=== PATIENT | female | born 1970 | race African-American/Black ===

== ENCOUNTER 2021-04-10 04:16 | Emergency (ER) | payer OTHER, BC ==
--- NOTE | 2021-04-10 05:57 | ED Physician Documentation ---
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 Patient states that been shorthanded over the last couple of months though she has had to get on the floor with her employees and she realizes that the exposure to vapors is very strong throughout the entire shift. Patient states that she has been noticing that if she is in the midst of the vapors too long, she begins to sweat and get a hot cold feeling in her arms and tingling in her fingers. Patient states that sometimes she feels lightheaded. The symptoms generally improve when she gets out of the room, but she is frustrated because she is asked her company many times to provide re spirators and they have not. Patient states she is a smoker, but usually does not have symptoms like this. She does note that she was thrown from a buffer about 10 days ago and has been having pain in the left knee since. No distinct tissue injury otherwise. Patient did not hear a "pop" or "snap". No other complaints at this time. Review of Systems Ten Systems: 10 systems reviewed and negative Constitutional: reports: Reviewed and negative Eyes: reports: Reviewed and negative Ears: reports: Reviewed and negative Nose: reports: Reviewed and negative Throat: reports: Reviewed and negative Cardiac: reports: Reviewed and negative Respiratory: reports: Dyspnea, Cough, Wheezing GI: reports: Reviewed and negative : reports: Reviewed and negative Skin: reports: Reviewed and negative Musculoskeletal: reports: Joint pain (Left knee) Neurologic: reports: Reviewed and negative Psychiatric: reports: Reviewed and negative Endocrine: reports: Reviewed and negative Immunocompromised: reports: Reviewed and negative PD PAST MEDICAL HISTORY - Past Medical History Past Medical History: Yes Neuro: Migraines Endocrine/Autoimmune: Type 2 diabetes : Kidney stones HEENT: Other Other Past Medical History: TMJ; hip fx - Past Surgical History 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 - Social History Does the pt smoke?: Yes Smoking Status: Current every day smoker Does the pt drink ETOH?: No Does the pt have substance abuse?: No - Immunizations Immunizations are current?: Yes PD ED PE NORMAL - Vitals Vital signs reviewed: Yes - General General: Alert and oriented X 3, No acute distress, Well developed/nourished - HEENT HEENT: Atraumatic, PERRL, EOMI, Moist mucous membranes - Neck Neck: Supple, no meningeal sign - Cardiac Cardiac: RRR, No murmur, Strong equal pulses - Respiratory Respiratory: No respiratory distress, Clear bilaterally - Abdomen Abdomen: Soft, Non tender, Non distended - Derm Derm: Normal color, Warm and dry, No rash - Extremities Extremities: No deformity, Other (No point tenderness of left knee, but when patient flexes and weights the left lower extremity, she experiences the deep pain and sense of instability.) - Neuro Neuro: Alert and oriented X 3 - Psych Psych: Normal mood, Normal affect Results - Vitals Vitals: Vital Signs - 24 hr 04/10/21 04/10/21 04/10/21 04:38 05:14 06:22 Temperature 36.5 C 36.5 C 36.5 C Heart Rate 93 91 88 Respiratory 98 H 19 18 Rate Blood Pressure 128/92 H 128/91 H 151/96 H O2 Saturation 98 97 04/10/21 06:25 Temperature 36.4 C L Heart Rate 86 Respiratory 18 Rate Blood Pressure 151/96 H O2 Saturation 97 Oxygen O2 Source Room air - Rads (name of study) cxr Radiology: Final report received, EMP read indepedently, See rad report (neg) L knee XR Radiology: Final report received, EMP read indepedently (nad) PD MEDICAL DECISION MAKING - ED course Complexity details: reviewed results, re-evaluated patient, considered differential, d/w patient ED course: We have discussed the need for the patient to stay away from the chemicals when they are really bothering her. We have also discussed important would be for the company to provide a respirator that is designed to filter Vapors. Departure - Departure Disposition: 01 Home, Self Care Clinical Impression: Toxic effect of unspecified gases, fumes and vapors, accidental (unintentional), initial encounter Left knee sprain Qualifiers: Encounter type: initial encounter Involved ligament of knee: unspecified ligament Qualified Code(s): S83.92XA - Sprain of unspecified site of left knee, initial encounter Condition: Stable Instructions: ED Inhalation Chemical, ED Sprain Knee Comments: Your chest x-ray looks good. Your knee x-ray shows a little bit of roughness of the outside of the kneecap, but the joint itself looks good. You have most likely at least partially torn one of your cruciate ligaments, causing the sense of instability with flexion. It is important that you follow-up with your doctor to discuss getting an MRI done to get a better look at this joint. You may wear the articulating knee brace as needed to help with support. Discharge Date/Time: 04/10/21 06:26
[2021-04-10 06:24] VITALS: BP 151/96
--- NOTE | 2021-04-10 09:30 | XRAY Report ---
PROCEDURE: Chest 1 View X-Ray INDICATIONS: cough, chemical exposure TECHNIQUE: One view of the chest was acquired. COMPARISON: None FINDINGS: Surgical changes and devices: None. Lungs and pleura: No pleural effusions or pneumothorax. Mild bilateral perihilar bronchial wall thic kening. Lungs are otherwise clear. Mediastinum: Mediastinal contours appear normal. Heart size is normal. Bones and chest wall: No suspicious bony lesions. Overlying soft tissues appear unremarkable. IMPRESSION: 1. Findings suggestive of mild bronchitis or reactive airways disease. 2. No pneumonia or pulmonary edema. Reviewed by: Adelaide Gtz MD on 04/10/2021 9:29 AM PDT Approved by: Adelaide Gtz MD on 04/10/2021 9:29 AM PDT Station ID: [id number]
--- NOTE | 2021-04-10 09:31 | XRAY Report ---
PROCEDURE: Knee 3 View LT INDICATIONS: pain/injury TECHNIQUE: 3 views of the left knee(s) were acquired. COMPARISON: None. FINDINGS: Bones: No fractures or dislocations. No suspicious bony lesions. Soft tissues: No joint effusion. No suspicious soft tissue calcifications. IMPRESSION: Intact left knee. Reviewed by: Adelaide Gtz MD on 04/10/2021 9:29 AM PDT Approved by: Adelaide Gtz MD on 04/10/2021 9:29 AM PDT Station ID: [id number]
== END 2021-04-10 06:26 | disposition home or self-care (01) ==
LOC: ED 04:16
DX: S83.92XA Sprain of unspecified site of left knee, initial encounter (principal); T59.91XA Toxic effect of unspecified gases, fumes and vapors, accidental (unintentional), initial encounter; X58.XXXA Exposure to other specified factors, initial encounter; Y93.H9 Activity, other involving exterior property and land maintenance, building and construction; Y99.0 Civilian activity done for income or pay; E11.9 Type 2 diabetes mellitus without complications; F17.200 Nicotine dependence, unspecified, uncomplicated
CPT/HCPCS: 99282; 99283

== ENCOUNTER 2021-04-25 23:05 | Emergency (ER) | payer OTHER, BC ==
[2021-04-25 23:47] VITALS: BP 155/99
--- NOTE | 2021-04-26 00:30 | ED Physician Documentation ---
History of Present Illness - Stated complaint Stated Complaint: L KNEE PX - Chief complaint Chief Complaint: Ext Problem - History obtained from History obtained from: Patient - History of Present Illness Timing: Other (02/12 (over 2 months ago)) Pain level max: 4 (movement) Pain level now: 2 (rest) Improved by: rest, using brace Worsened by: movement, weight-bearing - Additonal information Additional information: patient says she sustained an injury at work on 02/12/21 when she was thrown by a buffing machine (per patient), causing sudden onset left knee pain. She was not evaluated at that time. Since then, she has had ongoing problems with her left knee, feels as though the left knee is unstable and that if she puts a normal amount of weight on it without the brace, the knee will give out. She says she had a second injury, again involving a buffer at work, on 04/04/21. She waited several days to see if the symptoms would improve but eventually came to ED 04/10/21 for evaluation of the left knee injury. She had xrays of the knee which were negative for acute/emergent findings. It was on this visit that she was provided a knee immobilizer. She returns asking for another work note and to discuss options for pain control. She says she has been in contact with [facility] but that they cannot proceed until they receive the [facility] report from the previous [facility] ED visit. Review of Systems Cardiac: reports: Reviewed and negative Respiratory: reports: Reviewed and negative Skin: denies: Rash Musculoskeletal: reports: Joint pain (left knee; only with weight-bearing and associated with sensation of instability), Pain with weight bearing. 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 - Present Medications Home Medications: Ambulatory Orders Medication Instructions Recorded Confirmed traMADol [Ultram] 50 - 100 mg PO Q6H PRN #20 tablet 04/26/21 - Allergies Allergies/Adverse Reactions: Allergies Allergy/AdvReac Type Severity Reaction Status Date / Time No Known Drug Allergies Allergy Verified 04/25/21 23:16 - Social History Does the pt smoke?: Yes Smoking Status: Current every day smoker Does the pt drink ETOH?: No Does the pt have substance abuse?: No - Immunizations Immunizations are current?: Yes PD ED PE NORMAL - Vitals Vital signs reviewed: Yes - General General: Alert and oriented X 3, No acute distress, Well developed/nourished - Derm Derm: Normal color, Warm and dry - Extremities Extremities: No deformity, No tenderness to palpate, No edema, No calf tenderness / cord, Other (discomfort with attempt to test stability of left knee (such as anterior drawer). negative homans ) Results - Vitals Vitals: Oxygen O2 Source Room air PD MEDICAL DECISION MAKING - ED course Complexity details: reviewed old records, considered differential, d/w patient ED course: testing (repeat or new) is not indicated at this time on emergent basis. She needs outpatient reevaluation for consideration of further testing/treatment (such as MRI, PT, if appropriate at discretion of examining medical practitioner). Regarding analgesics, she does not want narcotics, but has not had adequate relief with OTC. We discussed tramadol and she will try this option, understanding that it is considered an opioid though generally much milder in both effect and side effect compared to vicodin or percocet. She is instructed to not drive or operate heavy machinery for minimum 6 hours after a dose.She will continue to pursue f/u through [facility] Departure - Departure Disposition: 01 Home, Self Care Clinical Impression: Left knee sprain Qualifiers: Encounter type: initial encounter Involved ligament of knee: unspecified ligament Qualified Code(s): S83.92XA - Sprain of unspecified site of left knee, initial encounter Condition: Good Instructions: ED Meniscal Injury Knee Poss, ED Sprain Knee Follow-Up: Saadia Sims MD [Provider Admit Priv/Credential] - Prescriptions: traMADol [Ultram] 50 - 100 mg PO Q6H PRN #20 tablet PRN Reason: Pain Forms: Activity restrictions Discharge Date/Time: 04/26/21 01:13
== END 2021-04-26 01:13 | disposition home or self-care (01) ==
LOC: ED 23:05
DX: S83.92XA Sprain of unspecified site of left knee, initial encounter (principal); X58.XXXA Exposure to other specified factors, initial encounter; Y99.0 Civilian activity done for income or pay; F17.200 Nicotine dependence, unspecified, uncomplicated; E11.9 Type 2 diabetes mellitus without complications
CPT/HCPCS: 99282; 99283